=== PATIENT | female | born 2000 | race Caucasian/White ===

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

== ENCOUNTER 2022-02-16 01:59 | Observation (INO) | payer OTHER ==
[~2022-02-16] VITALS: Ht 170.2 cm; Wt 97.5 kg
[~2022-02-16 01:59] MED LIST: ONDA4TAB5 MT
[2022-02-16] MEDS ORDERED: ONDANSETRON HCL 4MG/2ML INJ IV PRN (02:30)
[2022-02-16] MEDS ORDERED: ONDANSETRON HCL 4MG/2ML INJ IV ONE (02:30)
[2022-02-16] MEDS ORDERED: [UNRECOGNIZED DRUG - REMARK] IV ONE ×2 (02:30)
[2022-02-16] MEDS ORDERED: LACTATED RINGERS 1,000 ML IV SCH (02:30)
[2022-02-16 03:45] LABS: CHLORIDE 107 mEq/L (98-107)
[2022-02-16] MEDS ORDERED: PNV1TABL59 PO (04:08)
[2022-02-16] MEDS ORDERED: CALC-1042 PO (04:09)
== END 2022-02-16 04:36 | disposition home or self-care (01) ==
LOC: 8 EST LDRP 01:59
PROVIDERS: ADMIT Specialist; ATTEND Specialist
DX: O26.892 Other specified pregnancy related conditions, second trimester (principal); R10.11 Right upper quadrant pain; R10.12 Left upper quadrant pain; O21.2 Late vomiting of pregnancy; Z3A.22 22 weeks gestation of pregnancy
CPT/HCPCS: 36415; 59025; 76805; 80053; 96365; 96375; G0378; J2405; J3490; J7120; 96360; 96361; 99281

== ENCOUNTER 2022-05-03 02:50 | Observation (INO) | payer OTHER ==
[~2022-05-03] VITALS: Ht 170.2 cm; Wt 90.7 kg
[~2022-05-03 02:50] MED LIST changes: +CALC-1042 PO; +PNV1TABL59 PO
== END 2022-05-03 05:10 | disposition home or self-care (01) ==
LOC: 8 EST LDRP 02:50
PROVIDERS: ADMIT Specialist; ATTEND Specialist
DX: O26.893 Other specified pregnancy related conditions, third trimester (principal); R10.13 Epigastric pain; O21.2 Late vomiting of pregnancy; Z3A.33 33 weeks gestation of pregnancy
CPT/HCPCS: 59025; G0378; 99281

== ENCOUNTER 2023-11-19 13:59 | Emergency (ER) | payer OTHER ==
[~2023-11-19] VITALS: Ht 170.2 cm; Wt 109.0 kg
[~2023-11-19 13:59] MED LIST changes: -ONDA4TAB5 MT
[2023-11-19 14:01] VITALS: RESP 18
[2023-11-19 14:04] VITALS: BP 116/74; PULSE 116; TEMP 98.6; O2SAT 100
[2023-11-19 15:01] LABS: HEMATOCRIT. 38.3 % (36.0-48.0); HEMOGLOBIN. 12.5 g/dL (12.0-16.0); MEAN CORPUSCULAR HEMOGLOBIN 25.8 pg (28.0-32.0); MEAN CORPUSCULAR HGB CONC 32.6 g/dL (31.0-37.0); MEAN CORPUSCULAR VOLUME 79.1 fL (81.0-99.0); MEAN PLATELET VOLUME 8.5 fl (7.4-10.4); PLATELET 271 x1000/uL (130-400); RED BLOOD CELL COUNT 4.84 mill/uL (4.2-5.4); RED CELL DISTRIBUTION WIDTH 14.4 % (11.6-14.6); WHITE BLOOD COUNT 16.3 x1000/uL (4.5-11.0)
[2023-11-19 15:04] LABS: DIFFERENTIAL COMMENT 1
[2023-11-19 15:12] LABS: ALANINE AMINOTRANSFERASE 20 IU/L (10-49); ALBUMIN 4.4 g/dL (3.2-4.8); ASPARTATE AMINOTRANSFERASE 14 IU/L (<34); BILIRUBIN TOTAL 0.3 mg/dL (0.1-1.0); CALCIUM 9.3 mg/dL (8.7-10.4); CARBON DIOXIDE 22 mEq/L (21-32); CHLORIDE 105 mEq/L (98-107); CREATININE 0.7 mg/dL (0.6-1.0); GLUCOSE 103 mg/dL (70-105); POTASSIUM 3.9 mEq/L (3.5-5.1); PROTEIN TOTAL 8.1 g/dL (6.0-8.3); SODIUM 136 mEq/L (136-145); UREA NITROGEN BLOOD 13 mg/dL (9-23)
[2023-11-19 15:13] LABS: HCG SCREEN NEGATIVE
[2023-11-19 15:30] LABS: PLATELET ESTIMATE NORMAL
[2023-11-19] MEDS ORDERED: MAGNESIUM/ALUMINUM HYDROXIDE/SIMETHICONE 30ML UDC PO NR (17:15)
[2023-11-19] MEDS ORDERED: ONDANSETRON 4MG ODT PO NR (17:15)
[2023-11-19] MEDS ORDERED: FAMOTIDINE 20MG TABLET PO NR (17:15)
== END 2023-11-19 17:21 | disposition left against medical advice (07) ==
LOC: ER 13:59
DX: M79.10 Myalgia, unspecified site (principal); Z53.21 Procedure and treatment not carried out due to patient leaving prior to being seen by health care provider
CPT/HCPCS: 36415; 80053; 84703; 85025; 99281